=== PATIENT | female | born 1980 | race Caucasian/White ===

== ENCOUNTER → 2023-11-16 15:59 | Outpatient (REF) | payer OTHER, SELFPAY | LOC: WDC 15:59 | PROVIDERS: ATTENDING PHYSICIAN Family Medicine | DX: Z12.31 Encounter for screening mammogram for malignant neoplasm of breast (principal) | CPT/HCPCS: 77063; 77067 ==

== ENCOUNTER → 2024-01-24 09:46 | Outpatient (REF) | payer OTHER, SELFPAY | LOC: WDC 09:46 | PROVIDERS: ATTENDING PHYSICIAN Obstetrics & Gynecology; FAMILY PHYSICIAN Family Medicine | DX: N63.10 Unspecified lump in the right breast, unspecified quadrant (principal); N63.14 Unspecified lump in the right breast, lower inner quadrant | CPT/HCPCS: 76642 ==

== ENCOUNTER → 2024-02-23 08:51 | Outpatient (REF) | payer OTHER, SELFPAY | LOC: HWRAD 08:51 | PROVIDERS: ATTENDING PHYSICIAN Obstetrics & Gynecology; FAMILY PHYSICIAN Family Medicine | DX: N93.9 Abnormal uterine and vaginal bleeding, unspecified (principal) | CPT/HCPCS: 76830; 76856 ==

== ENCOUNTER → 2024-11-21 16:03 | Outpatient (REF) | payer OTHER, SELFPAY | LOC: WDC 16:03 | PROVIDERS: ATTENDING PHYSICIAN Family Medicine | DX: Z12.31 Encounter for screening mammogram for malignant neoplasm of breast (principal) | CPT/HCPCS: 77063; 77067 ==